=== PATIENT | female | born 1975 | race Two or more races ===

== ENCOUNTER 2016-07-28 05:57 | Day surgery (SDC) | payer OTHER ==
[2016-07-27 11:34] VITALS: BMI 36.6
[2016-07-28] MEDS ORDERED: PROPOFOL 20 ML ONE ×3 (07:27→08:11)
[2016-07-28] MEDS ORDERED: ROCURONIUM BROMIDE 50 MG/5 ML VIAL ONE (07:27)
[2016-07-28] MEDS ORDERED: LIDOCAINE HCL/PF 2% SDV 5ML VIAL ONE (07:27)
[2016-07-28] MEDS ORDERED: MIDAZOLAM HCL 2 MG/2 ML SINGLE DOSE VIAL ONE (07:28)
--- NOTE | 2016-07-28 07:29 | HP ---
History & Physical Update - History History: No Change - Physical Physical: No Change - Assessment Assessment: No Change - Plan Plan: No Change
[2016-07-28] MEDS ORDERED: BUPIVACAINE HCL/PF 0.5% (5MG/ML) 10 ML VIAL ONE (07:50)
[2016-07-28] MEDS ORDERED: ceFAZolin SODIUM 1 GM VIAL ONE (07:58)
[2016-07-28] MEDS ORDERED: ceFAZolin SODIUM 1 GM VIAL IVPB ONE (08:00)
[2016-07-28] MEDS ORDERED: BUPIVACAINE HCL/PF 0.5% (5MG/ML) 10 ML VIAL IJ ONE ×2 (08:04→08:15)
[2016-07-28] MEDS ORDERED: GLYCOPYRROLATE 0.2 MG/1 ML VIAL ONE (08:11)
[2016-07-28] MEDS ORDERED: NEOSTIGMINE METHYLSULFATE 0.5 MG/ML - 10 ML MDV ONE (08:11)
[2016-07-28] MEDS ORDERED: DEXAMETHASONE SOD PHOSPHATE 4 MG/1 ML VIAL ONE (08:11)
[2016-07-28] MEDS ORDERED: KETOROLAC TROMETHAMINE 30 MG/1 ML VIAL ONE (09:01)
--- NOTE | 2016-07-28 09:15 | OP ---
Operative Note - Note: Operative Date: 07/28/16 Pre-Operative Diagnosis: chronic cholecystitis Operation: laparoscopic cholecystectomy Post-Operative Diagnosis: Same as Pre-op Surgeon: Davis Lipscomb Sheep Farm Manager: Nay Schroeder Anesthesiologist/FINANCIAL ASSISTANCE SPECIALIST: Felicia Nguyen Anesthesia: General Specimens Removed: gallbladder Estimated Blood Loss (mls): 20 Fluid Volume Replaced (mls): 700 Operative Report Dictated: Yes
[2016-07-28] MEDS ORDERED: ONDANSETRON 4 MG/2 ML VIAL IVPUSH PRN (09:16)
[2016-07-28] MEDS ORDERED: oxyCODONE HCL 5 MG TABLET PO PRN (09:16)
[2016-07-28] MEDS ORDERED: ACETAMINOPHEN 1000 MG/100 ML VIAL (NON FORMULARY) IVPB PRN (09:17)
--- NOTE | 2016-07-28 09:17 | SURG ---
Surgery Marketing Strategist Note Marketing Strategist: Nay Schroeder PA-C Date of Service: 07/28/16 Diagnosis: chronic cholecystitis Procedure: laparoscopic cholecystectomy I was present for the entirety of the operative procedure. For further detail, please refer to operative report. Visit type - Case Type Case Type: Scheduled Admission - Emergency Emergency Visit: No - New patient This patient is new to me today: Yes Date on this admission: 07/28/16 - Critical Care Critical Care patient: No
--- NOTE | 2016-07-28 09:22 | OP ---
DATE OF OPERATION: 07/28/2016 PROCEDURE: Laparoscopic cholecystectomy. PREOPERATIVE DIAGNOSIS: Chronic cholecystitis with cholelithiasis. POSTOPERATIVE DIAGNOSIS: Chronic cholecystitis with cholelithiasis. SURGEON: Davis Lipscomb MD CLINICAL RESEARCH MANAGER: REINALDO Maldonado ANESTHESIA: General endotracheal. FINDINGS ON PROCEDURE: This is a 40-year-old female who presents with persistent epigastric and right upper quadrant pain for more than a month for which ultrasound in June showed 1.2-cm gallstone impacted in the neck of the gallbladder. On physical exam, patient has mild, deep right upper quadrant and epigastric tenderness. So , patient was advised cholecystectomy, and consent was obtained after discussing the risks, benefits, and alternatives of the procedure. DESCRIPTION OF PROCEDURE: Patient was brought to the operating room and placed in supine position. General endotracheal anesthesia was administered. The abdomen was prepped and draped in the usual sterile fashion. Using 0.5% Marcaine, local anesthesia was administered to the proposed incision sites. The peritoneal cavity was entered using the Optiview technique with a 5-mm 0- degree scope inserted in a 5-mm optical port. Pneumoperitoneum was established. The peritoneal cavity was carefully inspected. It was noted to be free of inadvertent injury. The patient was then placed in reverse Trendelenburg [id number] position. An 11-mm port was inserted in the subxiphoid region and two 5-mm ports were inserted at the right subcostal region, one at the midclavicular line and one at the anterior axillary line. The gallbladder fundus was identified and retracted superiorly. Omental adhesions to the gallbladder were taken down using the laparoscopic anabel connected to monopolar cautery. The infundibulum was grasped and retracted inferolaterally to expose the hepatocystic triangle. The visceral peritoneum covering the triangle was scored to facilitate dissection of the cystic duct and cystic artery. This was done using the hook dissector combined with the [place] dissector. A window between the cystic artery and the liver was made to establish the critical view of safety. The cystic duct was initially clipped at 3 points followed by transection leaving 2 clips as a cystic duct stump. Cystic artery was likewise clipped at 3 points and transected leaving 2 clips as the cystic artery stump. The gallbladder was then resected from its bed in antegrade fashion using the hook dissector connected to monopolar cautery. During the course of resection, the gallbladder bed was inadvertently punctured and the bile was suctioned to decompress the distended gallbladder. The resection was completed, and the gallbladder was placed in an Endobag and extracted via the subxiphoid incision, which was enlarged to accommodate a 2-cm gallstone. The liver, gallbladder bed, as well as the Morison's pouch were irrigated with sterile normal saline until the return was clear. The ports were removed, and the pneumoperitoneum was then evacuated. The wounds were closed with one figure-of-8 Vicryl 0 suture for the fascia at the subxiphoid incision, and subcuticular Biosyn 4-0 sutures for the skin. The wound closure was reinforced with Dermabond. The patient was then successfully extubated and transferred to the post- anesthesia care unit in satisfactory condition. ESTIMATED BLOOD LOSS: About 20 mL. WOUND CLASS: Clean-contaminated. The patient received 2 g of Ancef prior to the start of the procedure. Farrah [id number] MTDD
[2016-07-28] MEDS ORDERED: LACTATED RINGERS SOLUTION 1,000 ML IV SCH (09:30)
[2016-07-28] MEDS ORDERED: ACETAMINOPHEN INJECTION 100 ML IVPB ONE (09:40)
--- NOTE | 2016-07-28 10:37 | EKG ---
Test Reason : Blood Pressure : / mmHG Vent. Rate : 071 BPM Atrial Rate : 071 BPM P-R Int : 188 ms QRS Dur : 088 ms QT Int : 410 ms P-R-T Axes : 047 029 029 degrees QTc Int : 445 ms NORMAL SINUS RHYTHM POSSIBLE LEFT ATRIAL ENLARGEMENT INCOMPLETE RBBB WHEN COMPARED WITH ECG OF 08-MAR-2010 16:58, NONSPECIFIC T WAVE ABNORMALITY NOW EVIDENT IN ANTERIOR LEADS Confirmed by CHAPIS VOGT, RENEA ([id number]) on 07/28/2016 10:37:40 AM Referred By: Davis Lipscomb Confirmed By:RENEA NATION MD
[2016-07-28] MEDS ORDERED: oxyCODONE HCL 5 MG TABLET ONE (11:42)
[2016-07-28 14:07] VITALS: BP 111/66; PULSE 72
[2016-07-28 14:25] VITALS: TEMP 99.1
--- NOTE | 2016-07-31 13:37 | PATH ---
Surgical Pathology Report Patient Name: KARINA TAYLOR [facility]. Rec. #: [id number] /Age/Gender: 1975 (Age: 40) / F Account: [id number] Location: [facility] SURGICAL Taken: 07/28/2016 Received: 07/28/2016 Reported: 07/31/2016 Physicians: Davis Lipscomb M.D. Specimen(s) Received GALLBLADDER Clinical History Chronic cholecystitis Final Diagnosis GALLBLADDER, CHOLECYSTECTOMY: CHRONIC CHOLECYSTITIS, CHOLESTEROLOSIS, AND CHOLELITHIASIS. Electronically Signed Theron Connors M.D. Gross Description Received in formalin, labeled "gallbladder," is a 7.3 x 2.2 x 2.2 cm. gallbladder with a 0.2 cm. in length portion of cystic duct attached. The outer surface is davenport-pink with a large defect and varies from smooth to shaggy. The lumen contains a 2.7 cm in greatest dimension yellow, ovoid cholelith. There is no bile present within the lumen. The mucosa is hyperemic with a gold cholesterol stippling. The wall of the gallbladder averages 0.2 cm. in thickness. Sat Math Tutor sections are submitted in one cassette. /07/28/2016 saudi07/28/2016
== END 2016-07-28 14:06 | disposition home or self-care (01) ==
LOC: JASU-SURG 05:57
PROVIDERS: ATTEND Surgery
PROC: 0FT44ZZ Resection of Gallbladder, Percutaneous Endoscopic Approach (ICD-10-PCS; principal; 2016-07-28 07:30)
DX: K80.10 Calculus of gallbladder with chronic cholecystitis without obstruction (principal)
CPT/HCPCS: 84703; 88304-TC; 93005; 93010; 94760

== ENCOUNTER 2016-10-24 21:10 | Inpatient (IN) | payer OTHER ==
--- NOTE | 2016-10-24 22:21 | PDOC ---
History of Present Illness - General Chief Complaint: Pain Stated Complaint: ABD PAIN Time Seen by Provider: 10/24/16 21:29 - History of Present Illness Initial Comments: 10/25/16 00:25 41yo tamazight speaking female presents to the ED with her daughter who is translating. PMHx of cholecystectomy 3 months prior. States on sunday she was holding in her stool and didn't go to the bathroom. States she has had abd pain since. Denies n/v/d. States having regular bm since sunday. States pain to lower abd. Pt denies f/c. States pain radiates up through chest - has a burning sensation. Pt states pain is different from her gallbladder pain. Denies hematuria or dysuria. No vaginal complaints. Pt states eating and drinking. No f /c. No flank pain. No other complaints. Past History - Past Medical History Allergies/Adverse Reactions: Allergies Allergy/AdvReac Type Severity Reaction Status Date / Time No Known Allergies Allergy Verified 10/24/16 21:14 Home Medications: Ambulatory Orders NK [No Known Home Medication] 10/24/16 Anemia: No Asthma: No Cancer: No Cardiac Disorders: No CVA: No COPD: No CHF: No Dementia: No Diabetes: No GI Disorders: Yes (GALLBLADDER DSE) Disorders: No HTN: Yes Hypercholesterolemia: No Liver Disease: No Seizures: No Thyroid Disease: No - Surgical History Cholecystectomy: Yes - Suicide/Smoking/Psychosocial Hx Smoking History: Never smoked Have you smoked in the past 12 months: No Information on smoking cessation initiated: No Hx Alcohol Use: No Drug/Substance Use Hx: No Substance Use Type: None Hx Substance Use Treatment: No Review of Systems - Review of Systems Able to Perform ROS?: Yes (daughter translating) Is the patient limited Tajik proficient: No Constitutional: No: Chills, Fever, Loss of Appetite HEENTM: No: Symptoms Reported Respiratory: No: Symptoms reported Cardiac (ROS): No: Symptoms Reported ABD/GI: Yes: Abdominal cramping, Other (abdominal pain). No: Abd. Pain w/ defecation, Constipated, Diarrhea, Nausea, Vomiting : No: Burning, Dysuria, Flank Pain Musculoskeletal: No: Back Pain Integumentary: No: Rash Neurological: No: Headache All Other Systems: Reviewed and Negative *Physical Exam - Vital Signs Last Vital Signs Temp Pulse Resp BP Pulse Ox 98.8 F 94 H 18 135/68 99 10/24/16 21:10 10/24/16 21:10 10/24/16 21:10 10/24/16 21:10 10/24/16 21:10 - Physical Exam General Appearance: Yes: Nourished, Appropriately Dressed, Mild Distress HEENT: positive: EOMI, CHRIS, Normal ENT Inspection, Pharynx Normal Neck: positive: Supple. negative: Tender Respiratory/Chest: positive: Lungs Clear, Normal Breath Sounds. negative: Chest Tender, Respiratory Distress, Accessory Muscle Use Cardiovascular: positive: Regular Rhythm, Regular Rate, S1, S2 Vascular Pulses: Dorsalis-Pedis (R): 2+, Doralis-Pedis (L): 2+ Gastrointestinal/Abdominal: positive: Normal Bowel Sounds, Tender, Soft, Tenderness. negative: Distended, Guarding, Rebound (RLQ ttp, +rovsings) Musculoskeletal: negative: CVA Tenderness, Decreased Range of Motion Extremity: positive: Normal Capillary Refill, Normal Inspection, Normal Range of Motion Integumentary: positive: Normal Color, Dry, Warm Neurologic: positive: personal driver II-XII NML intact, Fully Oriented, Alert, Motor Strength 5/5 Heart Score/ECG Review - ECG Intrepretation Comment:: 10/25/16 02:53 sinus at 97 w 1st degree av block. no acute st/t wave findings ED Treatment Course - LABORATORY CBC & Chemistry Diagram: 10/24/16 22:30 10/24/16 22:30 Medical Decision Making - Medical Decision Making 10/25/16 00:37 a/p: 41yo female with RLQ pain -labs -ct abd/pelvis -ua -ucg -concern for poss sbo vs acute appy, vs r sided colitis -npo -ivf hydration 10/25/16 00:[address], pending imaging results. pain controlled. no nausea at this time. 10/25/16 01:45 re-eval, pain controlled. acute appy on ct without perf. elevated wbc. recent surgery by Dr. Lipscomb. Call placed to Dr. Lipscomb. Awaiting call back. 10/25/16 02:14 another call placed to DR. Lipscomb. left voicemail. call placed to Dr. Ruiz, awaiting call back. 10/25/16 02:[address] Lipscomb, who recommends calling surgery consular officer call placed to Dr. Fonseca who accepts pt to service. will place on obs. will start zosyn. requests LR at 125cc/hr. Pt currently NPO. Discussed with the patient and the family who understand findings on ct and need for surgery in the Am. *DC/Admit/Observation/Transfer Diagnosis at time of Disposition: Acute appendicitis - Discharge Dispostion Condition at time of disposition: Fair Admit: Yes - Referrals Referrals: Kacy Ruiz MD [Primary Care Provider] -
[2016-10-24] MEDS ORDERED: SODIUM CHLORIDE 0.9% 1000 ML INFUS.BAG IV ONE (22:22)
[2016-10-24] MEDS ORDERED: MAG HYDROX/AL HYDROX/SIMETH 30 ML UNIT-DOSE CUP PO ONE (22:23)
[2016-10-24] MEDS ORDERED: MAG HYDROX/AL HYDROX/SIMETH 30 ML UNIT-DOSE CUP ONE (22:34)
[2016-10-24] MEDS ORDERED: ONDANSETRON 4 MG/2 ML VIAL ONE (22:34)
[2016-10-24] MEDS: ONDANSETRON 4 MG/2 ML VIAL IVPUSH ONE (22:39)
[2016-10-24 22:43] LABS: URINE APPEARANCE Clear; URINE BILIRUBIN Negative (NEGATIVE); URINE BLOOD Trace-intact (NEGATIVE); URINE GLUCOSE (UA) Negative (NEGATIVE); URINE KETONE Negative (NEGATIVE); URINE NITRITE Negative (NEGATIVE); URINE PROTEIN Negative (NEGATIVE); URINE UROBILINOGEN 0.2 (0.2-1.0)
[2016-10-24 22:44] LABS: URINE COLOR YELLOW
[2016-10-24 22:47] LABS: MCH 29.6 pg (25.7-33.7); MCHC 34.5 g/dl (32.0-36.0); MEAN CELL VOLUME 85.8 fl (80-96); MEAN PLT VOLUME 8.6 fl (7.5-11.1); PLATELET COUNT 310 K/MM3 (134-434); RDW 11.9 % (11.6-15.6); WHITE BLOOD COUNT 19.5 K/mm3 (4.0-10.8)
[2016-10-24 22:53] LABS: URINE LEUK ESTERASE NEGATIVE (NEGATIVE)
[2016-10-24 23:01] LABS: ALBUMIN 4.6 g/dl (3.5-5.0); ALK PHOS 79 U/L (32-92); ANION GAP 4 (8-16); BILIRUBIN,TOTAL 0.8 mg/dl (0.2-1.0); CALCIUM 9.4 mg/dl (8.4-10.2); CO2 26 mmol/L (22-28); CREATININE 0.7 mg/dl (0.6-1.3); GLUCOSE,RANDOM 108 mg/dl (74-106); SGOT/AST 15 U/L (10-42); SGPT/ALT 21 U/L (10-40)
[2016-10-24 23:08] LABS: URINE RBC 0-2 /hpf (0-3); URINE WBC 0-1 (3-5)
[2016-10-24 23:23] LABS: PLATELET ESTIMATE SLT INCREASED (NORMAL)
[2016-10-24] MEDS ORDERED: morphine CARPU-JECT 2 MG/1 ML DISP.SYRIN ONE (23:50)
[2016-10-24] MEDS ORDERED: morphine CARPU-JECT 2 MG/1 ML DISP.SYRIN IVPUSH ONE (23:54)
[2016-10-25] MEDS ORDERED: ONDANSETRON 4 MG/2 ML VIAL IVPUSH ONE (00:31)
[2016-10-25] MEDS ORDERED: ACETAMINOPHEN 325 MG TABLET (FP) PO ONE (01:36)
[2016-10-25] MEDS ORDERED: ACETAMINOPHEN 325 MG TABLET (FP) ONE (01:38)
[2016-10-25 02:18] LABS: INR 1.12 (0.82-1.09); PROTHROMBIN TIME (PATIENT) 12.4 SEC (9.98-11.88)
[2016-10-25] MEDS ORDERED: PIPERACILLIN/TAZOB 4.5 GM/100 ML PRE-DOCKED IVPB ONE (02:43)
[2016-10-25] MEDS ORDERED: PIPERACILLIN/TAZOBACTAM 4.5 GM VIAL IVPB ONE (02:44)
[2016-10-25] MEDS ORDERED: SODIUM CHLORIDE 0.9% 1000 ML INFUS.BAG IV ONE (02:46)
[2016-10-25] MEDS: LACTATED RINGERS SOLUTION 1,000 ML IV SCH (03:45)
[2016-10-25 03:59] VITALS: BMI 37.2
[2016-10-25] MEDS ORDERED: GUM MASTIC/STORAX/MSAL/ALCOHOL 1 DRP DROPSBTL MC ONE (07:50)
[2016-10-25] MEDS ORDERED: LIDOCAINE HCL 1%, 10 MG/ML (20ML VIAL) ONE (07:50)
[2016-10-25] MEDS ORDERED: BUPIVACAINE HCL/PF 0.5% (5MG/ML) 10 ML VIAL ONE (07:50)
--- NOTE | 2016-10-25 08:41 | HP ---
Admitting History and Physical - Primary Care Physician PCP: Kacy Ruiz - Admission Chief Complaint: RLQ pain radiating across lower abdomen since Sunday History of Present Illness: 41yo F with no medical problems, s/p lap demetrius 3 months ago, h/o c- section and laparoscopic ovarian cystectomy, presented to ER with progressively worse RLQ pain radiating across lower abdomen since Sunday. No f/c, n/v, d/c, was able to eat through yesterday, having normal BMs (last in hospital). Initially felt bloated/generally uncomfortable on Sunday, then pain set in and got worse over next few days. In ER, she was afebrile, wbc 19.5, CT showed acute appendicitis with dilated, inflamed appendix without perforation or abscess. She had fluids and Zosyn, and was admitted obs/23H for OR this morning. She feels better this morning, still with some pain. History Source: Patient, Family Member (daughter interpreting Ivorian at pt's request) Limitations to Obtaining History: Language Barrier (Ivorian - daughter interpreting) - Past Medical History Hepatobiliary: Yes: Cholelithiasis (s/p cholecystectomy) Reproductive: Yes: Other (h/o ovarian cyst surgery) ...LMP: 10/10/16 ...: No - Past Surgical History Past Surgical History: Yes: Cholecystectomy (laparoscopic 3 months ago), C- Section Additional Past Surgical History: ovarian cyst surgery laparoscopic - Smoking History Smoking history: Never smoked Have you smoked in the past 12 months: No - Alcohol/Substance Use Hx Alcohol Use: Yes (rare) History of Substance Use: reports: None - Social History Occupation: [employer] Home Medications - Allergies Allergies/Adverse Reactions: Allergies Allergy/AdvReac Type Severity Reaction Status Date / Time No Known Allergies Allergy Verified 10/24/16 21:14 - Home Medications Home Medications: Ambulatory Orders NK [No Known Home Medication] 10/24/16 Family Disease History - Family Disease History Family History: Unremarkable Review of Systems - Review of Systems Constitutional: denies: Chills, Fever Eyes: denies: Blurred Vision, Recent Change in Vision HENT: denies: Nasal Congestion, Throat Pain Neck: denies: Swollen Glands, Tenderness Cardiovascular: denies: Chest Pain, Palpitations Respiratory: denies: Cough, SOB Gastrointestinal: reports: Abdominal Pain (with hpi). denies: Constipation, Diarrhea, Nausea, Vomiting Genitourinary: denies: Burning, Dysuria Musculoskeletal: denies: Joint Pain, Joint Swelling Integumentary: reports: Incision (laparoscopic scars x4). denies: Change in Color, Rash Neurological: denies: Dizziness, Headache Physical Examination Vital Signs: Vital Signs Temperature 99 F 10/25/16 03:15 Pulse Rate 92 H 10/25/16 03:15 Respiratory Rate 16 10/25/16 03:15 Blood Pressure 113/64 10/25/16 03:15 O2 Sat by Pulse Oximetry (%) 98 10/25/16 03:15 Constitutional: Yes: Well Nourished, No Distress, Calm Eyes: Yes: Conjunctiva Clear, EOM Intact HENT: Yes: Atraumatic, Normocephalic Cardiovascular: Yes: Regular Rate and Rhythm, Murmur (soft systolic) Respiratory: Yes: Regular, CTA Bilaterally Gastrointestinal: Yes: Normal Bowel Sounds, Soft, Tenderness (focal at McBurney' s RLQ with referred tenderness from LLQ, no rebound or guarding). No: Distention, Hernia ...Rectal Exam: Yes: Deferred Renal/: No: CVA Tenderness - Left, CVA Tenderness - Right Musculoskeletal: No: Joint Stiffness, Joint Swelling Extremities: No: Cool, Cyanosis Edema: No Peripheral Pulses WNL: Yes Integumentary: Yes: Incision (x4 scars from laparoscopy, healed). No: Rash Neurological: Yes: Alert, Oriented Psychiatric: Yes: Alert, Oriented Labs: CBCD WBC 19.5 K/mm3 (4.0-10.8) H 10/24/16 22:30 RBC 4.57 M/mm3 (3.60-5.2) 10/24/16 22:30 Hgb 13.5 GM/dl (10.7-15.3) 10/24/16 22:30 Hct 39.2 % (32.4-45.2) 10/24/16 22:30 MCV 85.8 fl (80-96) 10/24/16 22:30 MCHC 34.5 g/dl (32.0-36.0) 10/24/16 22:30 RDW 11.9 % (11.6-15.6) 10/24/16 22:30 Plt Count 310 K/MM3 (134-434) 10/24/16 22:30 MPV 8.6 fl (7.5-11.1) 10/24/16 22:30 CMP Sodium 135 mmol/L (136-145) L 10/24/16 22:30 Potassium 3.6 mmol/L (3.5-5.1) 10/24/16 22:30 Chloride 105 mmol/L (98-107) 10/24/16 22:30 Carbon Dioxide 26 mmol/L (22-28) 10/24/16 22:30 Anion Gap 4 (8-16) L 10/24/16 22:30 BUN 13 mg/dl (7-18) 10/24/16 22:30 Creatinine 0.7 mg/dl (0.6-1.3) 10/24/16 22:30 Creat Clearance w eGFR > 60 (>60) 10/24/16 22:30 Calcium 9.4 mg/dl (8.4-10.2) 10/24/16 22:30 Total Bilirubin 0.8 mg/dl (0.2-1.0) 10/24/16 22:30 AST 15 U/L (10-42) 10/24/16 22:30 ALT 21 U/L (10-40) 10/24/16 22:30 Alkaline Phosphatase 79 U/L (32-92) 10/24/16 22:30 Total Protein 8.0 g/dl (6.4-8.3) 10/24/16 22:30 Albumin 4.6 g/dl (3.5-5.0) 10/24/16 22:30 INR, PTT INR 1.12 (0.82-1.09) 10/25/16 01:05 Imaging - Results Cat Scan: Report Reviewed (appendicitis with small amount of fluid/phlegmonous changes in RLQ, mild R hydro secondary to RLQ inflammation, no drainable abscess ), Image Reviewed Problem List - Problems (1) Acute appendicitis with localized peritonitis Assessment/Plan: 23H/Obs status NPO/IVF Zosyn started overnight by ER Discussed with patient risks, benefits and alternatives of laparoscopic possible open appendectomy, including but not limited to bleeding, infection, injury to adjacent structures, leak or injury, intraabdominal abscess, need for further procedures, ; alternatives include antibiotics, delayed or no surgery - risks of this include failure of nonoperative therapy, perforation, sepsis, recurrence, . Patient desires to proceed with operation - will take to OR for above. Informed consent signed for same. anticipate resuming po postop pain meds prn DVT prophylaxis - SCDs periop, early ambulation periop antibiotics Code(s): K35.3 - ACUTE APPENDICITIS WITH LOCALIZED PERITONITIS (2) Obesity (BMI 35.0-39.9 without comorbidity) Code(s): E66.9 - OBESITY, UNSPECIFIED (3) S/P laparoscopic cholecystectomy Code(s): Z90.49 - ACQUIRED ABSENCE OF OTHER SPECIFIED PARTS OF DIGESTIVE TRACT (4) H/O section Code(s): Z98.891 - HISTORY OF UTERINE SCAR FROM PREVIOUS SURGERY
[2016-10-25] MEDS ORDERED: SUCCINYLCHOLINE CHLORIDE 200 MG/10 ML VIAL ONE (08:45)
[2016-10-25] MEDS ORDERED: PROPOFOL 20 ML ONE (08:45)
[2016-10-25] MEDS ORDERED: MIDAZOLAM HCL 2 MG/2 ML SINGLE DOSE VIAL ONE (08:45)
[2016-10-25] MEDS ORDERED: ROCURONIUM BROMIDE 50 MG/5 ML VIAL ONE (08:45)
[2016-10-25] MEDS ORDERED: PIPERACILLIN/TAZOB 3.375 GM 3.375 GM in DEXTROSE 5%-WATER - 50 ML IVPB ONE (09:09)
[2016-10-25] MEDS ORDERED: DEXAMETHASONE SOD PHOSPHATE 4 MG/1 ML VIAL ONE ×2 (09:22→11:03)
[2016-10-25] MEDS ORDERED: ONDANSETRON 4 MG/2 ML VIAL ONE ×2 (09:22→11:03)
[2016-10-25] MEDS ORDERED: HYDROmorphone HCL/PF 1 MG/ML VIAL (FOR PYXIS CHARGING ONLY) ONE ×2 (09:42→10:28)
[2016-10-25] MEDS ORDERED: LIDOCAINE HCL 1%, 10 MG/ML (20ML VIAL) INF ONE (11:03)
[2016-10-25] MEDS ORDERED: BUPIVACAINE HCL/PF (5 MG/ML) 30 ML VIAL IJ ONE (11:04)
[2016-10-25] MEDS ORDERED: oxyCODONE HCL 5 MG TABLET PO PRN (11:59)
[2016-10-25] MEDS ORDERED: HYDROmorphone HCL CARPU-JECT 1 MG/1 ML DISP.SYRIN IVPB PRN (12:01)
--- NOTE | 2016-10-25 12:13 | OP ---
Operative Note - Note: Operative Date: 10/25/16 Pre-Operative Diagnosis: acute appendicitis with localized peritonitis Operation: laparoscopic appendectomy Findings: enlarged, inflamed, edematous appendix; yellow fluid in pelvis; friable mesoappendix Post-Operative Diagnosis: Same as Pre-op Surgeon: Tunde Fonseca Anesthesiologist/NETWORK SUPPORT ENGINEER: Juany Anthony Anesthesia: General, Local (10ml 1% lidocaine + 0.5% marcaine) Specimens Removed: appendix to pathology Estimated Blood Loss (mls): 15 Drains & Tubes with Location: [place] removed at end of case Drains, Volume Out (mls): 1,000 (UOP) Fluid Volume Replaced (mls): 1,100 (crystalloid) Operative Report Dictated: Yes
--- NOTE | 2016-10-25 14:25 | CON.ID ---
Consult Consult Specialty:: infectious diseases Referred by:: Reason for Consultation:: appendicitis - History of Present Illness Chief Complaint: abd pain History of Present Illness: 41yo F with no medical problems, s/p lap demetrius 3 months ago, h/o c- section and laparoscopic ovarian cystectomy, presented to ER with progressively worse RLQ pain radiating across lower abdomen since Sunday. patient was evalauted and diagnosed as appendicitis patient was taken to the operating room and lap choley was done spoke with surgeon enlarged, inflamed, edematous appendix; yellow fluid in pelvis; friable mesoappendix was the finding currently patinet has pain mainly on the rt side but looks stable - History Source History Provided By: Patient, Family Member - Past Medical History Hepatobiliary: Yes: Cholelithiasis (s/p cholecystectomy) ...LMP: 10/10/16 ...: No - Past Surgical History Past Surgical History: Yes: Cholecystectomy (laparoscopic 3 months ago), C- Section - Alcohol/Substance Use Hx Alcohol Use: Yes (rare) History of Substance Use: reports: None - Smoking History Smoking history: Never smoked Have you smoked in the past 12 months: No - Social History Occupation: [employer] Home Medications - Allergies Allergies/Adverse Reactions: Allergies Allergy/AdvReac Type Severity Reaction Status Date / Time No Known Allergies Allergy Verified 10/24/16 21:14 - Home Medications Home Medications: Ambulatory Orders NK [No Known Home Medication] 10/24/16 Review of Systems - Review of Systems Constitutional: reports: No Symptoms Eyes: reports: No Symptoms HENT: reports: No Symptoms Neck: reports: No Symptoms Cardiovascular: reports: No Symptoms Respiratory: reports: No Symptoms Gastrointestinal: reports: Abdominal Pain Genitourinary: reports: No Symptoms Musculoskeletal: reports: No Symptoms Integumentary: reports: No Symptoms Neurological: reports: No Symptoms Endocrine: reports: No Symptoms Hematology/Lymphatic: reports: No Symptoms Psychiatric: reports: No Symptoms Physical Exam Vital Signs: Vital Signs Temperature 98.2 F 10/25/16 13:53 Pulse Rate 68 10/25/16 13:53 Respiratory Rate 18 10/25/16 13:53 Blood Pressure 130/69 10/25/16 13:53 O2 Sat by Pulse Oximetry (%) 100 10/25/16 13:50 Constitutional: Yes: Well Nourished, Mild Distress, Obese, Other (post op) Eyes: Yes: Conjunctiva Clear Neck: Yes: Supple Cardiovascular: Yes: Regular Rate and Rhythm Respiratory: Yes: Regular, CTA Bilaterally Gastrointestinal: Yes: Soft, Tenderness, Other (absent bowel sounds) Musculoskeletal: Yes: WNL Extremities: Yes: WNL Wound/Incision: Yes: Dressing Dry and Intact Neurological: Yes: Alert, Oriented Psychiatric: Yes: Alert, Oriented Imaging - Results Cat Scan: Report Reviewed, Image Reviewed Assessment/Plan Problem List - Problems (1) Acute appendicitis with localized peritonitis Code(s): K35.3 - ACUTE APPENDICITIS WITH LOCALIZED PERITONITIS (2) Obesity (BMI 35.0-39.9 without comorbidity) Code(s): E66.9 - OBESITY, UNSPECIFIED (3) S/P laparoscopic cholecystectomy Code(s): Z90.49 - ACQUIRED ABSENCE OF OTHER SPECIFIED PARTS OF DIGESTIVE TRACT (4) H/O section Code(s): Z98.891 - HISTORY OF UTERINE SCAR FROM PREVIOUS SURGERY plan zosyn continue to monitor rest as per primary hydration
[2016-10-25] MEDS ORDERED: ONDANSETRON 4 MG/2 ML VIAL IVPB PRN (15:59)
[2016-10-25] MEDS: ONDANSETRON 4 MG/2 ML VIAL IVPUSH ONE (16:05)
[2016-10-25] MEDS: PIPERACILLIN/TAZOB 3.375 GM 50 ML IVPB SCH (16:08)
[2016-10-25] MEDS: ACETAMINOPHEN 325 MG TABLET (FP) PO PRN (19:30)
[2016-10-25] MEDS: IBUPROFEN 600 MG TABLET (FP) PO PRN (22:12)
[2016-10-25] MEDS: DOCUSATE SODIUM 100 MG CAPSULE (FP) PO SCH (22:12)
[2016-10-26] MEDS: PIPERACILLIN/TAZOB 3.375 GM 50 ML IVPB SCH ×3 (02:11→09:50)
--- NOTE | 2016-10-26 07:54 | DS ---
Physical Examination Vital Signs: Vital Signs Temperature 98.9 F 10/26/16 05:14 Pulse Rate 70 10/26/16 05:14 Respiratory Rate 18 10/26/16 05:14 Blood Pressure 116/55 10/26/16 05:14 O2 Sat by Pulse Oximetry (%) 97 10/26/16 05:14 Vital Signs Period Temp Pulse Resp BP Sys/Tirado Pulse Ox Last 24 Hr 97.5 F-99.6 F 68-88 18-18 116-161/55-75 96-100 Findings/Remarks: Pt seen and examined in bed. Feeling better - minimal pain, using oral pain meds. Had Tylenol and ibuprofen last night. Voiding, OOB to ambulate once yesterday. Tolerating clears, is hungry. Has a headache. No nausea, + flatus, no BM yet. Constitutional: Yes: Well Nourished, No Distress, Calm Cardiovascular: Yes: Regular Rate and Rhythm. No: Murmur Respiratory: Yes: Regular, CTA Bilaterally Gastrointestinal: Yes: Normal Bowel Sounds, Soft, Tenderness (mild RLQ, some incisional tenderness at umbilicus). No: Distention (minimal) Wound/Incision: Yes: Steri Strips (underneath dressings), Dressing Dry and Intact (suprapubic with mild pink staining) Neurological: Yes: Alert, Oriented Labs: no new labs Discharge Summary Reason For Visit: acute appendicitis Current Active Problems Acute appendicitis with localized peritonitis (Acute) H/O section Obesity (BMI 35.0-39.9 without comorbidity) (Acute) S/P laparoscopic cholecystectomy Procedures: Principal: laparoscopic appendectomy Hospital Course: 41yo essentially healthy F s/p lap demetrius 3m ago presented to ER with RLQ pain radiating across her lower abdomen for 2 days, getting progressively worse. She did not have N/V, F/C, or change in bowel habits. In the ER, her wbc was 19.5, and CT showed acute appendicitis with inflammation/phlegmonous changes but no perforation or abscess. She was given fluids and antibiotics and taken to OR for laparoscopic appendectomy with findings of an enlarged, inflamed, edematous appendix with friable mesoappendix and some yellow fluid in the pelvis. Postoperatively, she has done well, slowly tolerating a diet, voiding well, getting OOB and ambulating, and with mainly incisional pain controlled with oral medications. She received Zosyn perioperatively. She will be discharged home with lifting restrictions to follow up in 2 weeks in surgical clinic and with her PMD. Time spent on discharge: 35 minutes Condition: Good - Instructions Diet, Activity, Other Instructions: Postoperative instructions: You had a laparoscopic appendectomy on 10/25/[address] Tunde Fonseca of [facility]. Activity: Resume your usual activities gradually, but no heavy exertion or lifting more than 10-15 pounds for 1 month. Remove dressings 48 hours after surgery (Sunday); sticky tapes underneath will fall off by themselves. You may shower daily starting then, just pat the incision areas dry. Eat lightly at first, but advance to your usual diet as tolerated. Pain: For pain, you may use and alternate Tylenol (acetaminophen) 1-2 pills and/ or ibuprofen (Advil) 400-600mg every 6 hours each as needed; this means that you can take one OR the other at 3-hour intervals. (If you are prescribed a Tylenol/narcotic combination for severe pain, use it instead of plain Tylenol as needed and switch back when your pain starts decreasing.) Do not take more than 4000mg of acetaminophen in a day. Take medications as prescribed or indicated on the labeling. Follow-up: Call Dr. Fonseca's office at [phone] to make your postop appointment (Sunday ~2 weeks after surgery). Clinic is held in the [facility] on the first floor of [facility] at [address] in [place]. Call the office if you have: * increasing pain not responsive to pain medication * fever of 101F or higher * vomiting * unusual or increasing bleeding or drainage from wounds * increasing redness or swelling at wound sites * inability to urinate Also, see your primary medical doctor (Dr. Ruiz) within 1-2 weeks. Referrals: Kcay Ruiz MD [Primary Care Provider] - Disposition: HOME - Home Medications Comprehensive Discharge Medication List: Ambulatory Orders NK [No Known Home Medication] 10/24/16 Acetaminophen 650mg every 6 hrs as needed for pain alternating with Ibuprofen 400-600mg every 6 hrs as needed for pain
[2016-10-26] MEDS: LACTATED RINGERS SOLUTION 1,000 ML IV SCH (09:48)
[2016-10-26] MEDS: IBUPROFEN 600 MG TABLET (FP) PO PRN (09:48)
[2016-10-26] MEDS: DOCUSATE SODIUM 100 MG CAPSULE (FP) PO SCH (09:50)
[2016-10-26] MEDS: ACETAMINOPHEN 325 MG TABLET (FP) PO PRN (12:33)
[2016-10-26 14:42] VITALS: BP 109/56; PULSE 82; TEMP 98.4
--- NOTE | 2016-10-29 19:39 | OP ---
DATE OF OPERATION: 10/25/2016 PREOPERATIVE DIAGNOSIS: Acute appendicitis with localized peritonitis. POSTOPERATIVE DIAGNOSIS: Acute appendicitis with localized peritonitis. PROCEDURE: Laparoscopic appendectomy. SURGEON: Tunde Fonseca MD ANESTHESIA: General endotracheal and local 10 mL of 1% lidocaine plus 0.5% Marcaine. ESTIMATED BLOOD LOSS: 15 mL. FLUIDS: 1100 mL of crystalloid. URINE OUTPUT: 1 L. SPECIMEN: Appendix to Pathology. FINDINGS: An enlarged, inflamed, edematous appendix with some yellow fluid in the pelvis and a very friable mesoappendix. DISPOSITION: Stable and extubated to PACU. INDICATIONS FOR PROCEDURE: The patient is a 41-year-old female status post laparoscopic cholecystectomy 3 months prior, and a history of section and laparoscopic ovarian cystectomy, who presented to the emergency room with progressive worsening of right lower quadrant pain radiating across her lower abdomen for 2 days. She denied fever and chills, nausea and vomiting, diarrhea or constipation. In the emergency room, she had a white count of 19.5, was afebrile, and a CT scan was consistent with acute appendicitis with a dilated inflamed appendix without perforation or abscess. She was given fluids, started on Zosyn, and was admitted for operative intervention. Risks, benefits, and alternatives of laparoscopic, possible open appendectomy were discussed with the patient, including but not limited to bleeding, infection, injury to adjacent structures, leak or injury, intraabdominal abscess, and need for further procedures. The patient signed informed consent for the same and she was brought to the operating room for this procedure. OPERATIVE TECHNIQUE: The patient was brought to the operating room and laid supine on the operating table. Sequential compression devices were applied to bilateral lower extremities. After induction and intubation by Anesthesia, a Medrano catheter was placed in the patient's bladder, which was removed at the end of the case. A dose of Zosyn was given preoperatively. The patient's abdomen was prepped and draped in sterile fashion. A small infraumbilical midline incision was made at the umbilicus with a scalpel and carried into subcutaneous tissues with electrocautery, until the abdominal wall fascia was identified, scored and elevated with Diego clamps. The peritoneum was entered bluntly with the tip of a clamp, and a fingertip was used to ensure entry into the peritoneal cavity and the absence of underlying adhesions. A stay suture of 0 Vicryl in [id number] fashion was placed in the fascia for later closure, and a Lina trocar was introduced directly into the abdominal cavity and secured in place with the balloon. The abdomen was insufflated with carbon dioxide and a laparoscope inserted to inspect the abdominal cavity. The patient was placed in Trendelenburg position with the right side planed somewhat upward, and some yellow fluid was visible in the pelvis. Two additional 5-mm ports were placed under direct vision in the left lower quadrant and suprapubic areas, and the camera was switched to the left lower quadrant port. Two graspers were introduced through the other 2 ports and used to gently manipulate the omentum and small bowel away from the right lower quadrant. The appendix was visible, was noted to be enlarged, inflamed, and rather edematous. It was mildly adherent to the right sidewall, and some fat including the veil of Treves was also gently from the edge of the appendix. The base of the appendix was visible where it joined the cecum and noted to be much less inflamed than the rest of it. A grasper was used to gently grasp toward the base of the appendix, as a Maryland dissector was used to create a window at the base of the appendix where it joined the cecum, to facilitate stapling the appendiceal base first. Once that window was created, a blue load of the Endo SYED stapler was introduced (45 length) and used to transect the base of the appendix where it joined the cecum. It was very difficult after that to grasp the remainder of the appendix other than at the stapled base. Indeed, the mesoappendix was noted to be rather friable. A 45 load of the davenport stapler was introduced and several times attempted to be positioned to begin transecting the mesoappendix. Every time the stapler was closed, however, the mesoappendix simply . At one point there was some oozing from some blood vessels in the mesoappendix, both in the proximal and distal side. This was grasped and held with a grasper and the stapler repositioned to ensure that the first firing not only transected the mesoappendix, but also facilitated hemostasis. After one firing of the stapler had been accomplished, there was still some mesoappendix left attached, and the grasper was able to carefully manipulate the appendix into position, such that the remainder of the mesoappendix could be taken with a second 45 davenport load of the stapler. There was some ongoing oozing from the raw peritoneal surfaces where the mesoappendix had been quite friable. Hot Maryland cautery was used to help facilitate hemostasis in a few of these spots. With the suction electric motor control assembler tool, yellow fluid was suctioned from the pelvis, and the operative field was irrigated with saline solution and suctioned clear of bloody fluid several times, to the point where it was not clear that there was any active bleeding going on, but the field still appeared somewhat pink. The appendix had been set to the side to be retrieved at the end of the operation. A piece of Surgicel was then introduced through the umbilical port site and laid over the operative field to facilitate hemostasis, at which point the appendix was placed in an EndoCatch bag and retrieved out the umbilical port site and passed off the table for a specimen. Once the Lina trocar and pneumoperitoneum had been reestablished, the operative field was reinspected, the area re- irrigated and suctioned clear, and the Surgicel carefully and gently lifted off of the site, where there was no further oozing or bleeding noted. This was then also withdrawn with a grasper through the larger umbilical port site and discarded. The suction electric motor control assembler was again used to irrigate and suction the area clear of fluid. Hemostasis was noted to be complete. The patient was returned to neutral position and the omentum drawn down over the operative area. The 5-mm ports were removed under direct vision, and the Lina and camera were also removed from the abdominal cavity, which was exsufflated of carbon dioxide. The stay suture was tied to close the fascia at the umbilical site. Local anesthetic was infiltrated into all the port sites. Hemostasis was achieved in the port sites with electrocautery where necessary, and skin was closed with 4-0 Vicryl subcuticular sutures, including a running at the umbilical site. The incisions were covered with Mastisol and Steri-Strips, then covered with gauze and Tegaderm. Counts were correct at the end of the procedure. The patient's Medrano catheter was then removed prior to the patient being awakened and extubated by Anesthesia. She was then moved back to a stretcher and taken to the recovery room in stable condition, having tolerated the procedure well. Farrah [id number] MTDD
--- NOTE | 2016-10-30 13:20 | PATH ---
Surgical Pathology Report Patient Name: KARINA TAYLOR Med. Rec. #: [id number] /Age/Gender: 1975 (Age: 41) / F Account: [id number] Location: [facility] MED-SURG Taken: 10/25/2016 Received: 10/25/2016 Reported: 10/30/2016 Physicians: Tunde Fonseca M.D. Specimen(s) Received APPENDIX Clinical History Abdominal pain, appendicitis Final Diagnosis APPENDIX, APPENDECTOMY: ACUTE APPENDICITIS AND PERIAPPENDICITIS. Electronically Signed Marva Sweet M.D. Gross Description Received in formalin, labeled "appendix," is a 6 cm. in length vermiform appendix with a stapled margin of resection and moderate attached fat. The serosa is davenport lund with attached exudate. Sectioning reveals a focally hemorrhagic lumen. The wall of the appendix averages 0.2 cm. in thickness. Administrative Project Coordinator sections are submitted in one cassette. /10/26/2016 saudi10/26/2016
== END 2016-10-26 14:50 | disposition home or self-care (01) | DRG 225 ==
LOC: FER 21:10 → FM/S 10-25 03:15 → OBSVTOIN 10-25 11:54
PROVIDERS: ADMIT Surgery; ATTEND Surgery
PROC: 0DTJ4ZZ Resection of Appendix, Percutaneous Endoscopic Approach (ICD-10-PCS; principal; 2016-10-25 09:41)
DX: K35.3 Acute appendicitis with localized peritonitis (principal); I10 Essential (primary) hypertension; I44.0 Atrioventricular block, first degree; Z68.37 Body mass index [BMI] 37.0-37.9, adult; E66.9 Obesity, unspecified; Z90.49 Acquired absence of other specified parts of digestive tract
CPT/HCPCS: 36415; 74177-TC; 80053; 81003; 81015; 83690; 84703; 85025; 85610; 85730; 86850; 86900; 86901; 88304-TC; 94760; 99283-25; G0378

== ENCOUNTER 2018-06-24 00:25 | Emergency (ER) | payer OTHER ==
[2018-06-24 00:28] VITALS: BMI 37.7
[2018-06-24 00:33] VITALS: BP 142/60; PULSE 72; TEMP 98.8
--- NOTE | 2018-06-24 00:36 | PDOC ---
History of Present Illness - General Chief Complaint: Shortness of Breath Stated Complaint: SOB Time Seen by Provider: 06/24/18 00:28 History Source: Patient Exam Limitations: No Limitations - History of Present Illness Initial Comments: 06/24/18 05:01 presents with air hunger and mild chest pressure x 6 hours recurrent symptomotology medina for same two weeks ago including nl echo, EST and LE duplexes No PE RFs cardiac RFs: HTN 06/24/18 05:04 Timing/Duration: reports: intermittent Severity: reports: moderate Possible Cause: Yes: occasional episodes. No: no prior episodes Modifying Factors: worse with: activity, lying down, rest Associated Symptoms: reports: chest pain/soreness. denies: cough, fever/chills Past History - Past Medical History Allergies/Adverse Reactions: Allergies Allergy/AdvReac Type Severity Reaction Status Date / Time No Known Allergies Allergy Verified 06/24/18 00:26 Home Medications: Ambulatory Orders Metoprolol Succinate [Toprol Xl] 25 mg PO DAILY 06/24/18 Anemia: No Asthma: No Cancer: No Cardiac Disorders: No CVA: No COPD: No CHF: No Dementia: No Diabetes: No GI Disorders: Yes (GALLBLADDER DSE) Disorders: No HTN: Yes Hypercholesterolemia: No Liver Disease: No Seizures: No Thyroid Disease: No - Surgical History Appendectomy: Yes Cholecystectomy: Yes - Suicide/Smoking/Psychosocial Hx Smoking History: Never smoked Have you smoked in the past 12 months: No Hx Alcohol Use: No Drug/Substance Use Hx: No Substance Use Type: None Hx Substance Use Treatment: No Review of Systems - Review of Systems Able to Perform ROS?: Yes All Other Systems: Reviewed and Negative *Physical Exam - Vital Signs Last Vital Signs Temp Pulse Resp BP Pulse Ox 98.8 F 72 17 142/60 100 06/24/18 00:25 06/24/18 00:25 06/24/18 00:25 06/24/18 00:25 06/24/18 00:25 - Physical Exam General Appearance: Yes: Nourished, Appropriately Dressed Neck: negative: Lymphadenopathy (R), Lymphadenopathy (L) Respiratory/Chest: positive: Lungs Clear Cardiovascular: positive: Regular Rhythm Gastrointestinal/Abdominal: negative: Tender Lymphatic: negative: Adenopathy Musculoskeletal: positive: Normal Inspection Extremity: negative: Swelling, Calf Tenderness Integumentary: positive: Normal Color Medical Decision Making - Medical Decision Making 06/24/18 05:03 CXR -, as read by me, referred to radiology for definitive read a/p PERC- no source of air hunger identified on PE sat remained 99% trhoughout evaluation a/p air hunger without clear etiology continue outpt medina *DC/Admit/Observation/Transfer Diagnosis at time of Disposition: Dyspnea Qualifiers: Dyspnea type: unspecified Qualified Code(s): R06.00 - Dyspnea, unspecified - Discharge Dispostion Disposition: HOME Condition at time of disposition: Stable - Referrals - Patient Instructions Printed Discharge Instructions: DI for Shortness of Breath - Post Discharge Activity
== END 2018-06-24 01:10 | disposition home or self-care (01) ==
LOC: FER 00:25
DX: R06.00 Dyspnea, unspecified (principal); I10 Essential (primary) hypertension
CPT/HCPCS: 71046-TC-FY; 99281-25

== ENCOUNTER 2018-11-10 22:03 | Emergency (ER) | payer OTHER ==
[2018-11-10 22:13] VITALS: BP 157/91; PULSE 69; TEMP 97.9; BMI 31.2
[2018-11-10] MEDS ORDERED: METOCLOPRAMIDE HCL INJECTION 10 MG/2 ML VIAL IVPUSH ONE (22:19)
[2018-11-10] MEDS ORDERED: DEXAMETHASONE SOD PHOSPHATE 10 MG/1 ML VIAL IVPUSH ONE (22:19)
[2018-11-10] MEDS ORDERED: DEXAMETHASONE SOD PHOSPHATE 10 MG/1 ML VIAL ONE (22:20)
[2018-11-10] MEDS ORDERED: METOCLOPRAMIDE HCL INJECTION 10 MG/2 ML VIAL ONE (22:20)
--- NOTE | 2018-11-10 22:57 | PDOC ---
Documentation entered by Debra Romero SCRIBE, acting as scribe for Bryant Spaulding MD. Bryant Spaulding MD: This documentation has been prepared by the Nick zuñiga Aiswarya, SCRIBE, under my direction and personally reviewed by me in its entirety. I confirm that the documentation accurately reflects all work, treatment, procedures, and medical decision making performed by me. History of Present Illness - General Chief Complaint: Headache Stated Complaint: HUITRON Time Seen by Provider: 11/10/18 22:18 History Source: Patient Exam Limitations: No Limitations - History of Present Illness Initial Comments: 11/10/18 22:26 The patient is a 43 year old female, with a significant PMH of HTN, who presents to the emergency department complaining of a migraine that began this morning. The patient states she endorses associated symptoms of nausea, vomiting, decrease in appetite, fatigue and sob, no relief Tylenol. She states last time she had a migraine was 2 years ago secondary due to high dose of metoprolol.The patient denies chest pain and dizziness.Denies fever, chills,, diarrhea and constipation.Denies dysuria, frequency, urgency and hematuria. Allergies: NKDA Past surgical history: None reported Social history: None reported PCP:None reported Past History - Past Medical History Allergies/Adverse Reactions: Allergies Allergy/AdvReac Type Severity Reaction Status Date / Time No Known Allergies Allergy Verified 06/24/18 00:26 Home Medications: Ambulatory Orders Metoprolol Succinate [Toprol Xl] 25 mg PO BID 06/24/18 Anemia: No Asthma: No Cancer: No Cardiac Disorders: No CVA: No COPD: No CHF: No Dementia: No Diabetes: No GI Disorders: Yes (GALLBLADDER DSE) Disorders: No HTN: Yes Hypercholesterolemia: No Liver Disease: No Seizures: No Thyroid Disease: No - Surgical History Appendectomy: Yes Cholecystectomy: Yes - Psycho Social/Smoking Cessation Hx Smoking History: Unknown if ever smoked Have you smoked in the past 12 months: No Number of Cigarettes Smoked Daily: 0 Information on smoking cessation initiated: No Hx Alcohol Use: No Drug/Substance Use Hx: No Substance Use Type: None Hx Substance Use Treatment: No Review of Systems - Review of Systems Able to Perform ROS?: Yes Comments:: 11/10/18 22:26 GENERAL/CONSTITUTIONAL: +weakness. No fever or chills. HEAD, EYES, EARS, NOSE AND THROAT: No change in vision. No ear pain or discharge. No sore throat. CARDIOVASCULAR:+sob. No chest pain RESPIRATORY: No cough, wheezing, or hemoptysis. GASTROINTESTINAL: +nausea and vomiting. No diarrhea or constipation. GENITOURINARY: No dysuria, frequency, or change in urination. MUSCULOSKELETAL: No joint or muscle swelling or pain. No neck or back pain. SKIN: No rash NEUROLOGIC:+headache. No vertigo, loss of consciousness, or change in strength/ sensation *Physical Exam - Vital Signs Last Vital Signs Temp Pulse Resp BP Pulse Ox 97.9 F 69 14 157/91 100 11/10/18 22:05 11/10/18 22:05 11/10/18 22:05 11/10/18 22:05 11/10/18 22:05 - Physical Exam Comments: 11/10/18 22:26 GENERAL: Awake, alert, and fully oriented, in no acute distress HEAD: No signs of trauma EYES: PERRLA, EOMI, sclera anicteric, conjunctiva clear LUNGS: Breath sounds equal, clear to auscultation bilaterally. No wheezes, and no crackles HEART: Regular rate and rhythm, normal S1 and S2, no murmurs, rubs or gallops EXTREMITIES: Normal range of motion, no edema. No clubbing or cyanosis. No cords, erythema, or tenderness NEUROLOGICAL: Cranial nerves II through XII grossly intact. Normal speech, normal gait SKIN: Warm, Dry, normal turgor, no rashes or lesions noted. ED Treatment Course - Medications Given in the ED: ED Medications Discontinued Medications Generic Name Dose Route Start Last Admin Trade Name Mainorq PRN Reason Stop Dose Admin Dexamethasone Sodium Phosphate 10 mg 11/10/18 22:19 11/10/18 22:32 Decadron Injection - IVPUSH 11/10/18 22:20 10 mg ONCE ONE Administration Metoclopramide HCl 10 mg 11/10/18 22:19 11/10/18 22:20 Reglan Injection - IVPUSH 11/10/18 22:20 10 mg ONCE ONE Administration Medical Decision Making - Medical Decision Making 11/11/18 05:39 episodic recurrent huitron disorder with migraine features (pulsing pain with n/v) gradual onset complete relief after Reglan and Dex in ED at the time of discharge, neuro exam remains nl including CN exam and strength and sensation in 4 ext) Discharge - Discharge Information Problems reviewed: Yes Clinical Impression/Diagnosis: Migraine Qualifiers: Migraine type: without aura Status migrainosus presence: without status migrainosus Intractability: not intractable Qualified Code(s): G43.009 - Migraine without aura, not intractable, without status migrainosus Condition: Good Disposition: HOME - Follow up/Referral Referrals: Kacy Ruiz MD [Primary Care Provider] - Tamika Patiño MD [Staff Physician] - Call tomorrow - Patient Discharge Instructions Patient Printed Discharge Instructions: DI for Migraine - Post Discharge Activity
== END 2018-11-10 23:23 | disposition home or self-care (01) ==
LOC: FER 22:03
PROC: 3E033GC Introduction of Other Therapeutic Substance into Peripheral Vein, Percutaneous Approach (ICD-10-PCS; principal; 2018-11-10)
DX: G43.009 Migraine without aura, not intractable, without status migrainosus (principal); I10 Essential (primary) hypertension; K92.9 Disease of digestive system, unspecified
CPT/HCPCS: 99282-25; J1100

== ENCOUNTER 2019-02-16 11:03 | Emergency (ER) | payer OTHER ==
[2019-02-16 11:13] VITALS: BP 162/85; PULSE 85; TEMP 98.6; BMI 37.0
--- NOTE | 2019-02-16 11:19 | PDOC ---
History of Present Illness - General Chief Complaint: Pain Stated Complaint: LEFT LOWER LEG PAIN Time Seen by Provider: 02/16/19 11:19 Past History - Past Medical History Allergies/Adverse Reactions: Allergies Allergy/AdvReac Type Severity Reaction Status Date / Time No Known Allergies Allergy Verified 02/16/19 11:05 Home Medications: Ambulatory Orders Metoprolol Succinate [Toprol Xl] 25 mg PO BID 06/24/18 Ibuprofen 800 mg PO TID PRN #30 tablet 02/16/19 Lidocaine 5% Patch [Lidoderm -] 1 patch TP DAILY #30 patch 02/16/19 Naproxen Sodium [Aleve] 440 mg PO ONCE 02/16/19 Anemia: No Asthma: No Cancer: No Cardiac Disorders: No CVA: No COPD: No CHF: No Dementia: No Diabetes: No GI Disorders: Yes (GALLBLADDER DSE) Disorders: No HTN: Yes Hypercholesterolemia: No Liver Disease: No Seizures: No Thyroid Disease: No - Surgical History Appendectomy: Yes Cholecystectomy: Yes - Psycho Social/Smoking Cessation Hx Smoking History: Never smoked Have you smoked in the past 12 months: No Number of Cigarettes Smoked Daily: 0 Hx Alcohol Use: No Drug/Substance Use Hx: No Substance Use Type: None Hx Substance Use Treatment: No *Physical Exam - Vital Signs Last Vital Signs Temp Pulse Resp BP Pulse Ox 98.6 F 85 20 162/85 98 02/16/19 11:04 02/16/19 11:04 02/16/19 11:04 02/16/19 11:04 02/16/19 11:04 Discharge - Discharge Information Problems reviewed: Yes Clinical Impression/Diagnosis: Leg pain Qualifiers: Laterality: left Qualified Code(s): M79.605 - Pain in left leg Condition: Good Disposition: HOME - Admission No - Additional Discharge Information Prescriptions: Ibuprofen 800 mg PO TID PRN #30 tablet PRN Reason: Severe Pain Lidocaine 5% Patch [Lidoderm -] 1 patch TP DAILY #30 patch - Follow up/Referral - Patient Discharge Instructions Patient Printed Discharge Instructions: DI for Leg Pain Additional Instructions: you came to the ED complaining of pain in your leg. This pain is most likely caused by inflammation in the muscles or nerves. You can use the ibuprofen and lidocaine patch prescribed to help with the pain. You should return to the ED for severe pain, swelling, redness or tenderness of the leg, fevers, other new or worsening symptoms. Make sure that you call your doctor tomorrow for an appointment. - Post Discharge Activity
[2019-02-16] MEDS ORDERED: IBUPROFEN 400 MG TABLET (FP) PO ONE ×2 (11:44→11:50)
[2019-02-16] MEDS ORDERED: LIDOCAINE 5% TOPICAL PATCH TP ONE (11:45)
[2019-02-16] MEDS ORDERED: LIDOCAINE 5% TOPICAL PATCH ONE (11:51)
[2019-02-16] MEDS ORDERED: LIDOCAINE PATCH REMOVAL MC SCH (22:00)
== END 2019-02-16 12:07 | disposition home or self-care (01) ==
LOC: FER 11:03
DX: M79.605 Pain in left leg (principal); I10 Essential (primary) hypertension; K92.9 Disease of digestive system, unspecified
CPT/HCPCS: 99282-25

== ENCOUNTER 2019-02-16 21:28 | Emergency (ER) | payer OTHER ==
[2019-02-16 21:40] VITALS: BP 149/74; PULSE 78; TEMP 97.8; BMI 37.0
[2019-02-16] MEDS ORDERED: predniSONE 20 MG TABLET (UD) PO ONE (21:59)
[2019-02-16] MEDS ORDERED: METHOCARBAMOL 500 MG TABLET PO ONE (22:00)
[2019-02-16] MEDS ORDERED: MAG HYDROX/AL HYDROX/SIMETH -MYLANTA- ORAL SUSPENSION PO ONE (22:00)
[2019-02-16] MEDS ORDERED: KETOROLAC TROMETHAMINE 60 MG/2 ML VIAL IM ONE (22:00)
[2019-02-16] MEDS ORDERED: MAG HYDROX/AL HYDROX/SIMETH 30 ML UNIT-DOSE CUP ONE (22:02)
[2019-02-16] MEDS ORDERED: METHOCARBAMOL 500 MG TABLET ONE (22:02)
[2019-02-16] MEDS ORDERED: KETOROLAC TROMETHAMINE 60 MG/2 ML VIAL ONE (22:02)
[2019-02-16] MEDS ORDERED: predniSONE 20 MG TABLET (UD) ONE (22:03)
--- NOTE | 2019-02-16 22:04 | PDOC ---
History of Present Illness - General Chief Complaint: Pain Stated Complaint: REVISIT FOR LEFT LEG PAIN Time Seen by Provider: 02/16/19 21:30 History Source: Patient Exam Limitations: No Limitations - History of Present Illness Initial Comments: 02/16/19 22:02 This is a 43-year-old female who comes in complaining of pain in her left leg. Patient was here earlier and diagnosed with muscle strain. However in further evaluation of patient she does have a history of sciatica and the pain does radiate all the way down from her low back down through her lower leg to her foot. Patient was wearing a Lidoderm patch from earlier which she said does not help. Patient denies any other complaints. Allergies: as per nursing notes Past Medical History: none Social history: Lives with family. No smoking. No alcohol. No illicit drugs. Surgical history: None General: No fevers or chills, no weakness, no weight loss HEENT: No change in vision. No sore throat,. No ear pain CardioVascular: no chest discomfort. No shortness of breath Respiratory:No cough, or wheezing. Gastrointestinal: no nausea, vomiting, diarrhea or constipation, No rectal bleeding Genitourinary: No dysuria, hematuria, or frequency Musculoskeletal: No joint or muscle pain or swelling Back: Sciatica Neurologic: No headache, vertigo, dizziness or loss of consciousness Psychiatric: nor depression Skin: No rashes or easy bruising Endocrine: no increased thirst or abnormal weight change Allergic: no skin or latex allergy All other systems reviewed and normal GENERAL: The patient is awake, alert, and fully oriented, in no acute distress. HEAD: Normal with no signs of trauma. EYES: Pupils equal, round and reactive to light, extraocular movements intact, sclera anicteric, conjunctiva clear. EXTREMITIES:atraumatic, Normal range of motion, no edema. Back: There is tenderness on palpation over the sciatic notch and L5-S1 area with left paraspinal spasm. Pain is positive for straight leg raising neurovascular is intact NEUROLOGICAL: Normal speech, normal gait. PSYCH: Normal mood, normal affect. SKIN: Warm, Dry, normal turgor, no rashes or lesions noted. Assessment and plan: This is a 43-year-old female with history of sciatica who comes in complaining of the pain radiating all the way down to her ankle. Patient was here earlier diagnosed with muscle strain however this does appear to be sciatica and I will give her steroids, muscle relaxants and anti- inflammatories. Past History - Past Medical History Allergies/Adverse Reactions: Allergies Allergy/AdvReac Type Severity Reaction Status Date / Time No Known Allergies Allergy Verified 02/16/19 11:05 Home Medications: Ambulatory Orders Metoprolol Succinate [Toprol Xl] 25 mg PO BID 06/24/18 Ibuprofen 800 mg PO TID PRN #30 tablet 02/16/19 Lidocaine 5% Patch [Lidoderm -] 1 patch TP DAILY #30 patch 02/16/19 Methocarbamol [Robaxin -] 500 mg PO TID #21 tablet 02/16/19 Naproxen Sodium [Aleve] 440 mg PO ONCE 02/16/19 Anemia: No Asthma: No Cancer: No Cardiac Disorders: No CVA: No COPD: No CHF: No Dementia: No Diabetes: No GI Disorders: Yes (GALLBLADDER DSE) Disorders: No HTN: Yes Hypercholesterolemia: No Liver Disease: No Seizures: No Thyroid Disease: No - Surgical History Appendectomy: Yes Cholecystectomy: Yes - Psycho Social/Smoking Cessation Hx Smoking History: Never smoked Have you smoked in the past 12 months: No Number of Cigarettes Smoked Daily: 0 Hx Alcohol Use: No Drug/Substance Use Hx: No Substance Use Type: None Hx Substance Use Treatment: No *Physical Exam - Vital Signs Last Vital Signs Temp Pulse Resp BP Pulse Ox 97.8 F 78 16 149/74 100 02/16/19 21:29 02/16/19 21:29 02/16/19 21:29 02/16/19 21:29 02/16/19 21:29 Discharge - Discharge Information Problems reviewed: Yes Clinical Impression/Diagnosis: Sciatica Qualifiers: Laterality: left Qualified Code(s): M54.32 - Sciatica, left side Condition: Good Disposition: HOME - Admission No - Follow up/Referral Referrals: Britton Wall MD [Staff Physician] - - Patient Discharge Instructions Additional Instructions: Take Robaxin 1 tablet 3 times a day for pain this is a muscle relaxant so it may make you drowsy. Take an anti-inflammatory you can take [id number] ibuprofen 3 tablets 3 times a day or Aleve 2 tablets twice a day. Make sure you take it after eating food. Follow-up with the orthopedist tomorrow morning. Return to the emergency department immediately with ANY new, persistent or worsening symptoms. Continue any medications as previously prescribed by your physician. You should follow up with your primary doctor as soon as possible regarding today's emergency department visit. . Please make sure your doctor reviews the results of your emergency evaluation. Thank you for coming to the Emergency Department today for your care. It was a pleasure to see you today. Please note that your evaluation is INCOMPLETE until you follow-up with your doctor. - Post Discharge Activity
== END 2019-02-16 22:38 | disposition home or self-care (01) ==
LOC: FER 21:28
PROC: 3E0233Z Introduction of Anti-inflammatory into Muscle, Percutaneous Approach (ICD-10-PCS; principal; 2019-02-16)
DX: M54.32 Sciatica, left side (principal); I10 Essential (primary) hypertension; K92.9 Disease of digestive system, unspecified
CPT/HCPCS: 99282-25

== ENCOUNTER 2020-09-17 00:43 | Emergency (ER) | payer OTHER ==
[2020-09-17 00:50] VITALS: BP 189/94; PULSE 95; TEMP 99.4; BMI 40.4
== END 2020-09-17 01:02 | disposition home or self-care (01) ==
LOC: FER 00:43
DX: R22.0 Localized swelling, mass and lump, head (principal)
CPT/HCPCS: 99281-25

== ENCOUNTER 2021-01-07 23:56 | Emergency (ER) | payer OTHER ==
[2021-01-08 00:06] VITALS: BP 169/86; PULSE 75; TEMP 98; BMI 34.4
== END 2021-01-08 01:14 | disposition home or self-care (01) ==
LOC: FER 23:56
DX: N93.9 Abnormal uterine and vaginal bleeding, unspecified (principal)
CPT/HCPCS: 99283-25

== ENCOUNTER 2023-02-06 11:36 | Emergency (ER) | payer OTHER ==
[2023-02-06 11:51] VITALS: BP 171/71; PULSE 81; RESP 16; TEMP 99; BMI 37.7
[2023-02-06] MEDS ORDERED: ACETAMINOPHEN 500 MG TABLET (FP) PO ONE (11:55)
[2023-02-06] MEDS ORDERED: ACETAMINOPHEN 325 MG TABLET (FP) ONE (12:16)
== END 2023-02-06 12:54 | disposition home or self-care (01) ==
LOC: FER 11:36
DX: R05.9 Cough, unspecified (principal); R09.3 Abnormal sputum; B34.9 Viral infection, unspecified; R09.81 Nasal congestion; J02.9 Acute pharyngitis, unspecified; H57.89 Other specified disorders of eye and adnexa; Z20.822 Contact with and (suspected) exposure to COVID-19
CPT/HCPCS: 0241U-QW; 71046-TC-FY; 99284-25